=== PATIENT | female | born 1950 | race Caucasian/White ===

== ENCOUNTER 2024-02-03 07:43 | Day surgery (SDC) | payer OTHER ==
[~2024-02-03] VITALS: Ht 162.6 cm; Wt 88.1 kg
[~2024-02-03 07:43] MED LIST: ASPI81CH PO; CITA20 PO; DULO30; KETO10 PO; LEVFLO500 PO; Lactated Ringer's 1,000 ML IV ONE; Norco 10-325 T1 EACH PO; OXYACE5T PO; PHENA200 PO; Zofran Odt4 MG SL; propofoL 40 ML IV ONE
[2024-02-03] MEDS ORDERED: BUPR75 (08:19)
[2024-02-03] MEDS ORDERED: Lisinopril2.5 MG (08:19)
[2024-02-03] MEDS ORDERED: ERGO50000 (08:19)
[2024-02-03] MEDS ORDERED: PREBIOTIC FIBER2 GM (08:20)
[2024-02-03] MEDS ORDERED: PROBIOTIC1 EA14 (08:20)
[2024-02-03] MEDS ORDERED: Lactated Ringer's 1,000 ML IV ONE (08:40)
[2024-02-03 09:23] VITALS: BP 146/80
== END 2024-02-03 09:41 | disposition home or self-care (01) ==
LOC: ORSCSDS 07:43
PROVIDERS: Surgery
PROC: 0DJD8ZZ Inspection of Lower Intestinal Tract, Via Natural or Artificial Opening Endoscopic (ICD-10-PCS; principal; 2024-02-03 08:45)
DX: Z12.11 Encounter for screening for malignant neoplasm of colon (principal); K57.30 Diverticulosis of large intestine without perforation or abscess without bleeding; F41.9 Anxiety disorder, unspecified; F32.A Depression, unspecified; E78.5 Hyperlipidemia, unspecified; I10 Essential (primary) hypertension; F17.210 Nicotine dependence, cigarettes, uncomplicated; Z79.899 Other long term (current) drug therapy
CPT/HCPCS: J2704; J7120

== ENCOUNTER 2024-05-13 10:09 | Day surgery (SDC) | payer OTHER ==
[~2024-05-13] VITALS: Ht 162.6 cm; Wt 89.1 kg
[~2024-05-13 10:09] MED LIST changes: +BUPR75; +ERGO50000; -Lactated Ringer's 1,000 ML IV ONE; +Lisinopril2.5 MG; +PREBIOTIC FIBER2 GM; +PROBIOTIC1 EA14; -propofoL 40 ML IV ONE
[2024-05-13] MEDS ORDERED: LOSARTAN POTASS25 M2 (10:46)
[2024-05-13] MEDS ORDERED: LOSA50 (10:49)
[2024-05-13] MEDS ORDERED: Lactated Ringer's 1,000 ML IV ONE ×2 (11:22→11:32)
[2024-05-13] MEDS ORDERED: Lidocaine HCl/Pf 1% 5 ML VIAL ONE (11:31)
[2024-05-13] MEDS ORDERED: propofoL 50 ML IV ONE ×2 (11:32→12:14)
[2024-05-13] MEDS ORDERED: Ondansetron HCl 2 MG / ML 2ML Vial ONE (12:12)
[2024-05-13 13:38] VITALS: BP 125/65
== END 2024-05-13 13:10 | disposition home or self-care (01) ==
LOC: ORSCSDS 10:09
PROVIDERS: Surgery
PROC: 0DJD8ZZ Inspection of Lower Intestinal Tract, Via Natural or Artificial Opening Endoscopic (ICD-10-PCS; principal; 2024-05-13 11:15)
DX: Z12.11 Encounter for screening for malignant neoplasm of colon (principal); K57.30 Diverticulosis of large intestine without perforation or abscess without bleeding; Z86.0101 Personal history of adenomatous and serrated colon polyps; I10 Essential (primary) hypertension; E78.5 Hyperlipidemia, unspecified; F32.A Depression, unspecified; F41.9 Anxiety disorder, unspecified; Z79.85 Long-term (current) use of injectable non-insulin antidiabetic drugs; Z79.899 Other long term (current) drug therapy; F17.210 Nicotine dependence, cigarettes, uncomplicated
CPT/HCPCS: J2003; J2405; J2704; J7120

== ENCOUNTER → 2025-01-05 | Outpatient (CLI) | payer OTHER ==
[~2025-01-05] MED LIST changes: +LOSA50; +LOSARTAN POTASS25 M2
[2025-01-05 13:07] LABS: Bilirubin, Urine Neg (Neg); Color, Urine Yellow (P-Yellow); Glucose Qualitative, Urine Neg (Neg); Ketones, Urine 2+ (Neg); Leukocyte Esterase, Urine 2+ (Neg); Protein, Urine 1+ (Neg); Specific Gravity, Urine 1.015 (1.003-1.022); Urobilinogen, Urine 1+ (Normal)
[2025-01-05 13:39] LABS: White Blood Cells, Urine 50-100 /hpf (0-5)
== END ==
LOC: LAB SHORT 08:52 → LAB 08:52
PROVIDERS: Urology
DX: N39.41 Urge incontinence (principal)
CPT/HCPCS: 81001; 87077; 87086; 87186

== ENCOUNTER → 2025-01-29 | Outpatient (CLI) | payer OTHER | LOC: LAB 15:30 → LAB SHORT 15:30 | DX: N39.0 Urinary tract infection, site not specified (principal) | CPT/HCPCS: 87077; 87086; 87186 ==